=== PATIENT | female | born 1960 | race Caucasian/White ===

== ENCOUNTER 2017-01-10 09:21 | Emergency (ER) | payer OTHER | END 2017-01-10 10:29 | disposition home or self-care (01) | LOC: ER 09:21 | DX: S16.1XXA Strain of muscle, fascia and tendon at neck level, initial encounter (principal); V29.20XA Unspecified motorcycle rider injured in collision with unspecified motor vehicles in nontraffic accident, initial encounter | CPT/HCPCS: 72040; 99284 ==

== ENCOUNTER 2017-01-22 14:15 | Emergency (ER) | payer OTHER | END 2017-01-22 16:30 | disposition home or self-care (01) | LOC: ER 14:15 | DX: M25.561 Pain in right knee (principal); M25.562 Pain in left knee; M25.551 Pain in right hip | CPT/HCPCS: 72170; 73502-RT; 73560-50; 99284 ==